=== PATIENT | male | born 1995 | race Caucasian/White ===

== ENCOUNTER 2017-11-20 05:32 | Emergency (ER) | payer SELFPAY ==
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
[2017-11-20 06:15] VITALS: BP 134/89; PULSE 98; TEMP 98.8; BMI 22.3
== END 2017-11-20 06:42 | disposition home or self-care (01) ==
LOC: JER 05:32
DX: S00.33XA Contusion of nose, initial encounter (principal); Y04.2XXA Assault by strike against or bumped into by another person, initial encounter; Y93.89 Activity, other specified; Y92.9 Unspecified place or not applicable
CPT/HCPCS: 70160-TC-FY; 99281-25